=== PATIENT | female | born 1965 | race Caucasian/White ===

== ENCOUNTER 2017-05-11 16:55 | Emergency (ER) | payer OTHER ==
[2017-05-11] MEDS: SOD CHLORIDE 0.9% 1,000 ML IV ×2 (21:43)
[2017-05-11] MEDS: ONDANSETRON 4 MG INJ IV ×2 (21:43→22:00)
[2017-05-11] MEDS: HYDROmorphONE 1 MG/ML SYG IV ×2 (21:43→22:00)
[2017-05-11 21:52] LABS: ADD MAN DIFF? NO
[2017-05-11 21:54] LABS: BASOPHILS % 0.5 % (0.0-2.0); HEMOGLOBIN 15.2 g/dl (12.0-16.0); LYMPHOCYTES # 0.9 10^3/ul (0.8-2.9); LYMPHOCYTES % 21.2 % (15.0-51.0); MEAN CORPUSCULAR HEMOGLOBIN 28.6 pg (29.0-33.0); MEAN CORPUSCULAR HGB CONC 35.3 g/dl (32.0-37.0); MEAN PLATELET VOLUME 11.5 fl (7.4-10.4); MONOCYTE # 0.4 10^3/ul (0.3-0.9); NEUTROPHILS % 68.8 % (39.0-77.0); PLATELET COUNT 223 10^3/UL (140-415); RED BLOOD COUNT 5.31 10^6/ul (4.20-5.40); RED CELL DISTRIBUTION WIDTH 12.4 % (11.5-14.5)
[2017-05-11 21:54] LABS: WHITE BLOOD COUNT 4.3 10^3/ul (4.8-10.8)
[2017-05-11] MEDS: INSULIN LISPRO 100 UNIT/ML VIAL SC (21:57)
[2017-05-11 22:17] LABS: ALANINE AMINOTRANSFERASE 39 IU/L (13-69); ALBUMIN 4.2 g/dl (3.3-4.9); ALBUMIN/GLOBULIN RATIO 1.23; ALKALINE PHOSPHATASE 82 IU/L (42-121); AMYLASE 44 U/L (11-123); ANION GAP 18 (8-16); ASPARTATE AMINO TRANSFERASE 29 IU/L (15-46); BILIRUBIN,INDIRECT 0.2 mg/dl (0-1.1); BILIRUBIN,TOTAL 0.2 mg/dl (0.2-1.3); BLOOD UREA NITROGEN 5 mg/dl (7-20); CALCIUM 9.2 mg/dl (8.4-10.2); CARBON DIOXIDE 21 mmol/L (21-31); CHLORIDE 97 mmol/L (97-110); CREATININE 0.42 mg/dl (0.44-1.00); GLUCOSE 259 mg/dl (70-220); LIPASE 35 U/L (23-300); POTASSIUM 3.8 mmol/L (3.5-5.1); SODIUM 132 mmol/L (135-144); TOTAL PROTEIN 7.6 g/dl (6.1-8.1)
[2017-05-11 22:31] LABS: TROPONIN-I < 0.012 ng/ml (0.00-0.12)
[2017-05-11 22:32] LABS: INR 0.92; PROTIME 12.4 Sec (11.9-14.9)
[2017-05-11 22:33] LABS: LACTIC ACID 0.9 mmol/L (0.5-2.0)
[2017-05-11 22:33] LABS: PARTIAL THROMBOPLASTIN TIME 30.8 Sec (25.0-35.0)
[2017-05-11 23:12] LABS: ACETAMINOPHEN < 10.0 ug/ml (10.0-30.0)
[2017-05-11 23:12] LABS: SALICYLATE < 1.0 mg/dl (5.0-30.0)
[2017-05-11 23:26] LABS: ETHANOL < 10.0 mg/dl
[2017-05-12 01:29] LABS: ADD UMIC NO; UR ASCORBIC ACID NEGATIVE (NEGATIVE); UR BILIRUBIN (Dip) NEGATIVE (NEGATIVE); UR BLOOD (Dip) NEGATIVE (NEGATIVE); UR CLARITY CLEAR (CLEAR); UR COLOR YELLOW (YELLOW); UR GLUCOSE (Dip) 3+ mg/dL (NEGATIVE); UR KETONES (Dip) 2+ mg/dL (NEGATIVE); UR LEUKOCYTE ESTERASE (Dip) NEGATIVE Leu/ul (NEGATIVE); UR NITRITE (Dip) NEGATIVE (NEGATIVE); UR TOTAL PROTEIN (Dip) NEGATIVE (NEGATIVE); UR UROBILINOGEN (Dip) NEGATIVE (NEGATIVE)
[2017-05-12 02:34] LABS: OPIATES Negative (NEGATIVE)
[2017-05-12 02:35] LABS: AMPHETAMINE/METHAMPHETAMINE Negative (NEGATIVE); BARBITURATES Negative (NEGATIVE); BENZODIAZEPINES Negative (NEGATIVE); CANNABINOIDS Positive (NEGATIVE); COCAINE Negative (NEGATIVE)
[2017-05-12] MEDS: ONDANSETRON 4 MG INJ IV (03:51)
[2017-05-12] MEDS: HYDROmorphONE 2 MG/ML SYG IV (03:51)
[2017-05-12] MEDS: GABAPENTIN 100 MG CAP PO (08:25)
[2017-05-12] MEDS: DULOXETINE 30 MG CAP DR PO (11:27)
[2017-05-12] MEDS: GABAPENTIN 300 MG CAP PO ×2 (13:05→23:50)
[2017-05-12] MEDS ORDERED: HYDROCODONE/APAP (10/325) TAB PO (17:30)
[2017-05-12] MEDS ORDERED: GABAPENTIN 300 MG CAP PO (23:30)
[2017-05-13] MEDS: BUPROPION (XL) 150 MG TAB PO (09:00)
[2017-05-13] MEDS: GABAPENTIN 300 MG CAP PO (10:28)
[2017-05-13] MEDS ORDERED: LORAZEPAM 1 MG TAB PO (21:00)
== END 2017-05-13 12:11 ==
LOC: E/R 05-13 12:11 → FTE 16:55
DX: E11.65 Type 2 diabetes mellitus with hyperglycemia (principal); G89.4 Chronic pain syndrome; I10 Essential (primary) hypertension; R07.9 Chest pain, unspecified; Z13.89 Encounter for screening for other disorder
CPT/HCPCS: 71045; 80053; 80306; 80307; 81003; 82150; 82962; 83605; 83690; 84484; 85025; 85610; 85730; 93005; 96374; 96375; 96376; 99285-25